=== PATIENT | female | born 1955 | race Two or more races ===

== ENCOUNTER 2018-04-08 12:58 | Inpatient (IN) | payer OTHER ==
[~2018-04-08] VITALS: Ht 160 cm; Wt 111.6 kg
--- NOTE | 2018-04-08 12:58 | NUR ---
BIBSELF FOR SOB, PT AAOX4, PT ON MONITOR, VSS, O2 SAT ON RA 97%, NAD NOTED, PENDING MD VALVERDE
[2018-04-08] MEDS ORDERED: methylPREDNISolone SOD SUCC 125 MG/2ML VIAL IV ONE (13:30)
[2018-04-08] MEDS ORDERED: methylPREDNISolone SOD SUCC 125 MG/2ML VIAL ONE (13:33)
[2018-04-08 13:47] LABS: BASOPHILS % (AUTO) 0.1 % (0.0-2.0); EOSINOPHILS % (AUTO) 0.9 % (0.0-6.0); HEMATOCRIT 42 % (33-45); HEMOGLOBIN 13.7 g/dL (11.5-14.8); LYMPHOCYTES # (AUTO) 1.1 /CMM (0.8-4.8); LYMPHOCYTES % (AUTO) 12.2 % (20.0-44.0); MEAN CORPUSCULAR HGB CONC 33 g/dl (31.0-36.0); MEAN CORPUSCULAR VOLUME 86 fL (82-100); MONOCYTES # (AUTO) 0.3 /CMM (0.1-1.30); MONOCYTES % (AUTO) 3.1 % (2.0-12.0); NEUTROPHILS # (AUTO) 7.7 /CMM (1.8-8.9); NEUTROPHILS % (AUTO) 83.7 % (43.0-81.0); PLATELET COUNT (AUTO) 301 /CMM (150-450); RED BLOOD CELL COUNT(AUTO) 4.92 MIL/uL (4.0-5.2); WHITE BLOOD COUNT (AUTO) 9.2 K/uL (4.3-11.0)
[2018-04-08] MEDS ORDERED: ZOLP10TA2 PO (13:49)
[2018-04-08] MEDS ORDERED: FLUO10CA26 PO (13:49)
[2018-04-08] MEDS ORDERED: NAPR220C15 PO (13:49)
[2018-04-08 14:06] LABS: CALCIUM, SERUM 8.8 mg/dL (8.5-10.1); CARBON DIOXIDE 27 mmol/L (21-32); CHLORIDE 104 mmol/L (98-107); CREATININE 1.1 mg/dL (0.6-1.3); GLUCOSE 134 mg/dL (74-106); POTASSIUM 3.5 mmol/L (3.5-5.1); SODIUM SERUM 140 mmol/L (136-145); UREA NITROGEN, BLOOD 15 mg/dL (7-18)
[2018-04-08 14:14] LABS: ALANINE AMINOTRANSFERASE 18 U/L (12-78); ALBUMIN 3.2 g/dL (3.4-5.0); ALKALINE PHOSPHATASE 118 U/L (46-116); ASPARTATE AMINOTRANSFERASE 16 U/L (15-37); B-TYPE NATRIURETIC PEPTIDE 513 PG/ML (0-125); BILIRUBIN,DIRECT 0.2 mg/dL (0.0-0.2); BILIRUBIN,TOTAL 0.9 mg/dL (0.2-1.0); TOTAL PROTEIN, SERUM 6.3 g/dL (6.4-8.2)
[2018-04-08] MEDS ORDERED: ZOLPIDEM TARTRATE 5 MG TABLET PO PRN (15:30)
[2018-04-08] MEDS ORDERED: Z GUARD REMEDY 2 OZ OINT TP PRN (15:30)
[2018-04-08] MEDS ORDERED: ACETAMINOPHEN 325 MG TABLET PO PRN (15:30)
[2018-04-08] MEDS ORDERED: MAG HYDROX/AL HYDROX/SIMETH 30 ML UDC PO PRN (15:30)
[2018-04-08] MEDS ORDERED: ONDANSETRON HCL/PF 4 MG/2 ML VIAL IVP PRN (15:30)
[2018-04-08] MEDS ORDERED: MAGNESIUM HYDROXIDE 30 ML UDC PO PRN (15:30)
--- NOTE | 2018-04-08 16:19 | NUR ---
REPORT GIVEN TO DIEGO VALENCIA FOR DARRION
[2018-04-08 16:30] VITALS: BP 131/52
--- NOTE | 2018-04-08 16:36 | NUR ---
PT TRANSPORTED TO 1ST FLOOR/MS/HAYLEE VIA ACLS PROTOCOL
[2018-04-08 16:45] VITALS: BP 131/52
[2018-04-08] MEDS: diphenhydrAMINE HCL 25 MG CAPSULE PO PRN ×2 (17:03→22:55)
[2018-04-08] MEDS: FUROSEMIDE 40 MG/4 ML VIAL IV SCH (17:03)
[2018-04-08] MEDS: predniSONE 20 MG TABLET PO SCH (17:03)
[2018-04-08] MEDS: ENOXAPARIN SODIUM 40 MG/0.4 ML DISP.SYRIN SQ SCH (17:03)
--- NOTE | 2018-04-08 18:39 | NUR ---
DIEGO NOTE PATIENT ALLERGIC TO SHELFISH, IODINE Addendum: 04/08/18 at 1841 by ERIK BUSH RN Amended: Links added.
[2018-04-08 20:00] VITALS: BP 136/73
[2018-04-09] VITALS: BP 106/51
[2018-04-09 04:00] VITALS: BP_SYST 117; BP_SYST 130; BP_DIAS 55
[2018-04-09] MEDS: diphenhydrAMINE HCL 25 MG CAPSULE PO PRN ×2 (05:25→12:34)
[2018-04-09 06:56] LABS: BASOPHILS % (AUTO) 0.1 % (0.0-2.0); HEMATOCRIT 37 % (33-45); LYMPHOCYTES # (AUTO) 1.2 /CMM (0.8-4.8); LYMPHOCYTES % (AUTO) 11.8 % (20.0-44.0); MEAN CORPUSCULAR HGB CONC 33 g/dl (31.0-36.0); MEAN CORPUSCULAR VOLUME 84 fL (82-100); MONOCYTES # (AUTO) 0.2 /CMM (0.1-1.30); MONOCYTES % (AUTO) 2.3 % (2.0-12.0); NEUTROPHILS # (AUTO) 8.5 /CMM (1.8-8.9); NEUTROPHILS % (AUTO) 85.8 % (43.0-81.0); PLATELET COUNT (AUTO) 270 /CMM (150-450); RED BLOOD CELL COUNT(AUTO) 4.37 MIL/uL (4.0-5.2); WHITE BLOOD COUNT (AUTO) 9.8 K/uL (4.3-11.0)
[2018-04-09 07:25] LABS: CALCIUM, SERUM 8.5 mg/dL (8.5-10.1); CREATININE 0.9 mg/dL (0.6-1.3); MAGNESIUM 1.9 mg/dL (1.8-2.4); PHOSPHORUS 2.9 mg/dL (2.5-4.9); POTASSIUM 3.5 mmol/L (3.5-5.1); THYROID STIMULATING HORMONE 0.845 uIU/mL (0.358-3.74)
[2018-04-09 08:00] VITALS: BP 132/52
--- NOTE | 2018-04-09 08:28 | NUR ---
WOUND CARE CONSULT: PT IS AMBULATORY AND CONTINENT. PT PRESENTS WITH RAISED RED CIRCULAR AREAS ON LEFT ARM AND RESOLVING RASH TO CHEST AND ABDOMEN. PT STATES HAS BEEN ITCHING AND PREVIOUSLY HAD THROAT SWELLING. DEFER TO . WILL SEE PRN. Addendum: 04/09/18 at 0830 by ALBA PNA WNDNU Amended: Links added.
[2018-04-09] MEDS: FUROSEMIDE 40 MG/4 ML VIAL IV SCH (08:54)
[2018-04-09] MEDS: predniSONE 20 MG TABLET PO SCH (08:54)
[2018-04-09] MEDS: diphenhydrAMINE HCL/ZINC ACET CREAM 28.3 GM TUBE TP PRN ×2 (08:57→20:45)
[2018-04-09] MEDS ORDERED: hydrOXYzine HCL INJ 50 MG/ML VIAL IM ONE (14:00)
--- NOTE | 2018-04-09 14:27 | NUR ---
Social service consult requested by senior case manager Nohemy for homelessness. Pt. is a 62 year old female who was admitted to [facility] for heart failure. SW met with pt. bedside. Pt. is alert and oriented x4. Pt. is cooperative and pleasant with SW during the assessment. Pt. appeared well groomed. Pt. was itching all over and scratching herself during the assessment. Pt. stated she might have had an allergic reaction to some food she ate two days ago. Pt. along with her son Marvin and [id number] with their two dogs live in [facility]. Pt. worked at [employer] for years. Pt. states she broke her back in March of 2017 and lost her job after. Pt's son and [id number] filed a lawsuit with [employer], when pt's [id number] Bayron was injured and broke her back. Pt. gave up all her savings to her son to help him care for his . Pt. states they won the suit and the money is in the bank and they are awaiting clearance. SW offered pt. [facility] and other homeless resources, however pt. declined. Pt. stated, " We will be okay soon.' Pt. states they have been living in motels on and off. Pt. and her family are deciding to move to [facility] where pt's whfboejj-nn-una has a house once they receive the settlement money. Pt. became tearful when she started stating that "the doctor is going to discharge when I have only been here for one day." Pt. states she just wants to get a good night sleep in a bed. GERMÁN asked HAYLEE Hill if pt. is discharging today and she stated, "No". SW informed pt. and she seemed relieved. Pt's emergency contact is her son Marvin Larry . No other social service needs are requested at this time. Pt. states her son Marvin will pick her up from [facility] upon discharge. SW is available, if needed. Homeless Patient Waiver Form to be signed by pt. upon discharge.
[2018-04-09] MEDS: hydrOXYzine 10 MG TABLET PO PRN ×2 (14:28→20:42)
[2018-04-09 15:45] VITALS: BP 142/59
[2018-04-09] MEDS: HYDROCODONE/APAP 5/325MG 1 EACH TABLET PO PRN ×2 (15:54→20:43)
[2018-04-09 16:00] VITALS: BP 142/59
[2018-04-09 16:24] LABS: ABG BASE EXCESS 3.6 mmol/L; ABG OXYGEN SATURATION 92.4 % (92.0-98.5); ABG PH 7.443 (7.350-7.450); ABG PO2 65.8 mmHg (75.0-100.0); AaDO2 69.8 mmHg; COHb 0.4 % (0.5-1.5); MetHb 0.4 % (0.0-1.5); O2Hb 91.7 % (94.0-97.0); SITE, ABG Right Radial; VENT MODE, BG NASAL CANNULA
[2018-04-09] MEDS ORDERED: EPINEPHRINE (1:1000) 1 MG/ML AMPUL IM ONE (16:30)
[2018-04-09] MEDS ORDERED: methylPREDNISolone SOD SUCC 125 MG/2ML VIAL IV ONE (16:30)
--- NOTE | 2018-04-09 16:49 | NUR ---
RN NOTE PT HAD SOB, O2 SATURATION WENT TO 85% ON ROOM AIR, CO FEELING A KNOT IN THE THROAT, PT PUT ON NC 2.0 L/MIN, ABG STAT DONE AND XCR IS DONE TOO. MD ORDERED SOLU-MEDROL IV AND EPINEPHRINE IM, BUT BY THE TIME OF ABOUT TO ADMINISTER PT SAID SHE FEELS BETTER. PT ABLE TO TALK CLEARLY AND SWALLOW WELL. PER PT "LUMP GOT SMALLER". PER MD OKAY TO HOLD EPI FOR NOW. ITCHING GOT BETTER AFTER HYDROXYZINE ADMINISTERING EARLIER.
[2018-04-09 20:00] VITALS: BP 116/70
--- NOTE | 2018-04-09 20:00 | NUR ---
RN/TELE NOTES: RECEIVED PT. IN BED SITTING WATCHING TV. A/O X 4. AMBULATORY W/ STEADY GAIT. CONTINENT OF B/B. ON TELE MONITOR W/ SR. C/O ITCHING. APPLIED BENADRYL ON HER BACH. VISITED BY SON AND DAUGHTER. ALL NEEDS MEET. WILL CONTINUE TO MONITOR.
[2018-04-09] MEDS: ENOXAPARIN SODIUM 40 MG/0.4 ML DISP.SYRIN SQ SCH (20:44)
[2018-04-09] MEDS: methylPREDNISolone SOD SUCC 125 MG/2ML VIAL IV SCH (20:45)
--- NOTE | 2018-04-09 21:04 | NUR ---
RN NOTES SPOKE TO GRANT CURIEL NP REGARDING BENADRYL CREAM VS HYDROCORTISONE. PER ANNIE BURNS TO USE HYDROCORTISONE 1% CREAM BID. ORDERS PLACED. WILL CONTINUE TO CLOSELY MONITOR THE PATIENT
[2018-04-09] MEDS: HYDROCORTISONE 1% CREAM 28.35 GM TUBE TP SCH (22:00)
[2018-04-10] VITALS: BP 110/49
[2018-04-10 04:00] VITALS: BP 133/58
[2018-04-10] MEDS: methylPREDNISolone SOD SUCC 125 MG/2ML VIAL IV SCH ×3 (05:57→20:14)
--- NOTE | 2018-04-10 07:25 | NUR ---
QUALITY CONTROL COORDINATOR OPENING NOTES RECEIVED PT STANDING AT BEDSIDE.ALERT/ORIENTED X4.ON ROOM AIR,TOLERATING WELL.ON TELE HR I 70'S WITH SR.NO SOB AND ACUTE DISTRESS NOTED.CAN AMBULATE WELL WITHOUT ASSISTANCE.C/O PAIN 7/10 AND GENERALIZED RASH. IV LINE IS ON RIGHT AC G20,IV LINE IS ON RIGHT HAND G20,SL.IV SITE IS CLEAN,DRY AND INTACT.NO INFILTRATION NOTED.SAFETY IS MAINTAINED AT ALL TIMES.CALL LIGHT IS WITHIN REACH.WILL CONTINUE TO MONITOR THE PT CLOSELY.
--- NOTE | 2018-04-10 07:43 | NUR ---
TELE/RN NOTES: REPORT GIVEN TO AM SHIFT NURSE FOR DARRION.
[2018-04-10 08:00] VITALS: BP 165/58
[2018-04-10] MEDS: hydrOXYzine 10 MG TABLET PO PRN ×2 (08:00→15:58)
[2018-04-10] MEDS: HYDROCODONE/APAP 5/325MG 1 EACH TABLET PO PRN ×2 (08:03→18:25)
[2018-04-10 08:09] LABS: BASOPHILS % (AUTO) 0.3 % (0.0-2.0); HEMATOCRIT 37 % (33-45); LYMPHOCYTES # (AUTO) 1.6 /CMM (0.8-4.8); LYMPHOCYTES % (AUTO) 16.6 % (20.0-44.0); MEAN CORPUSCULAR HGB CONC 33 g/dl (31.0-36.0); MEAN CORPUSCULAR VOLUME 84 fL (82-100); MONOCYTES # (AUTO) 0.3 /CMM (0.1-1.30); MONOCYTES % (AUTO) 3.4 % (2.0-12.0); NEUTROPHILS # (AUTO) 7.6 /CMM (1.8-8.9); NEUTROPHILS % (AUTO) 79.7 % (43.0-81.0); PLATELET COUNT (AUTO) 281 /CMM (150-450); RED BLOOD CELL COUNT(AUTO) 4.35 MIL/uL (4.0-5.2); WHITE BLOOD COUNT (AUTO) 9.5 K/uL (4.3-11.0)
[2018-04-10] MEDS: FUROSEMIDE 40 MG/4 ML VIAL IV SCH (08:31)
[2018-04-10] MEDS: HYDROCORTISONE 1% CREAM 28.35 GM TUBE TP SCH ×2 (10:00→17:00)
[2018-04-10] MEDS ORDERED: METH4TAB3 PO (10:47)
[2018-04-10] MEDS ORDERED: DIPH28.33 TP (10:47)
[2018-04-10] MEDS ORDERED: HYDR-4384 PO (10:47)
[2018-04-10] MEDS ORDERED: HYDR-3024 PO (10:47)
--- NOTE | 2018-04-10 10:58 | NUR ---
GERMÁN met with pt. bedside. Pt. is alert and oriented x 4. Pt. states she feels a lot better than yesterday and appears in good spirits. Pt. declined all homeless fdc programs and homeless resources. Pt. states she will have her son Marvin pick her up today. Homeless Patient Waiver Form signed by the pt. and placed in pt's chart. No other social service needs are required at this time. GERMÁN completed homeless checklist and updated CRN Liz regarding pt's discharge plan. GERMÁN is available, if needed.
[2018-04-10 16:00] VITALS: BP 149/76
--- NOTE | 2018-04-10 17:45 | NUR ---
MS RN NOTES PT IS NOTED WITH PANIC ANXIETY,O2 SAT CHECKED IT IS 89.PLACED PT ON 2 L O2 VIA NC.WENT TO 93%. MADE AWARE.ORDERED OK TO D/C TODAY AND CHECK THE O2 LEVEL RIGHT BEFORE SHE LEAVES.PT IS LYING ON BED,RELAXED.CHARGE NURSE MADE AWARE.
--- NOTE | 2018-04-10 18:58 | NUR ---
MS RN CLOSING NOTES PT IS LYING ON BED WITH O2 2 L VIA NC.READY FOR THE DISCHARGE.ALL THE DISCHARGE MEDICATIONS ARE DISCUSSED WITH THE PT AND MEDS PRESCRIPTION GIVEN TO THE PT.SKIN ASSESSMENT HAS DONE AND HAS TAKEN THE PICTURE.O2 SATURATION IS 94% NOW.ENDORSED TO LEONCIO TO MAKE SURE THE O2 SAT IS WNL BEFORE DISCHARGE AND FOLLOW UP WITH D/C PROCESS.
--- NOTE | 2018-04-10 20:00 | NUR ---
TELE/RN NOTES: RECEIVED PT. IN ROOM DRESSED WALKING AROUND. A/O X 4. ON TELE MONITOR W/ SR. HAS A HL ON RAC G 20 PATENT AND INTACT W/ NO S/S OF INFECTION/INFILTRATION NOTED. PT. IS READY TO BE D/C. RA O2 SAT 94%. PT. DENIES ANY C/O CHEST PAIN OR SOB AT PRESENT. PM MEDS GIVEN. D/C INSTRUCTIONS GIVEN FROM AM NURSE. IV HL D/C. PT. D/C HOME. SON HERE TO LEAD SUSTAINABILITY SPECIALIST THE PT. PT. AMBULATED W/ STEADY GAIT.
[2018-04-10] MEDS: ENOXAPARIN SODIUM 40 MG/0.4 ML DISP.SYRIN SQ SCH (20:15)
== END 2018-04-10 20:30 | disposition home or self-care (01) | DRG 811 ==
LOC: ER 13:00 → TELE1 16:10 → MEDSG1 04-09 09:51 → TELE1 04-09 16:17 → MEDSG1 04-10 09:44
PROVIDERS: ATTEND Student in an Organized Health Care Education/Training Program
DX: T78.40XA Allergy, unspecified, initial encounter (principal); E44.1 Mild protein-calorie malnutrition; L50.9 Urticaria, unspecified; Z68.41 Body mass index [BMI] 40.0-44.9, adult; Z59.0 Homelessness; E66.01 Morbid (severe) obesity due to excess calories; G89.29 Other chronic pain; F32.9 Major depressive disorder, single episode, unspecified; G47.33 Obstructive sleep apnea (adult) (pediatric); X58.XXXA Exposure to other specified factors, initial encounter; R60.0 Localized edema
CPT/HCPCS: 36415; 36600; 71045-TC; 80048-TC; 80061-TC; 80076-TC; 83735-TC; 83880; 84100-TC; 84443-TC; 84484-TC; 85025-TC; 85730-TC; 87081-TC; 93307-TC; G0378; J0171; J1650; J1940; J2930; J3410; Q0163; Q0177